=== PATIENT | female | born 1945 | race Caucasian/White ===

== ENCOUNTER → 2018-04-29 | Outpatient (CLI) | payer MEDICARE ==
[~2018-04-29] MED LIST: AMBEREN PO; AMITRIPTYLINE H10 M1; ASPIRIN EC325 M1 PO; ASPIRIN325 PO; B12INJ PO; CO Q-10100 MG PO; GINKGO BILOBA40 M1 PO; GINKGO BILOBA500 MG; KRILL OIL500 MG PO; LIPITOR 10 MG10 M1 PO; LORTAB 5 MG/5001 TA1 PO; MULTI-VITAMIN1 EAC5 PO; MULTIVITAMINS PO; NIFEREX100 MG/5 M; OMEPRAZOLE40 MG PO; PYRIDOXINE HCL50 MG PO; THERA-M CAPLET1 EACH PO; VITAMIN B-12500 MCG PO; VITAMIN B-650 M1 PO; VITCB500GO PO
== END ==
LOC: M.RAD 13:01
DX: Z12.31 Encounter for screening mammogram for malignant neoplasm of breast (principal); M85.80 Other specified disorders of bone density and structure, unspecified site; Z78.0 Asymptomatic menopausal state

== ENCOUNTER → 2018-09-29 | Outpatient (CLI) | payer MEDICARE | LOC: M.ULTRA 08:14 | DX: C78.7 Secondary malignant neoplasm of liver and intrahepatic bile duct (principal); K21.9 Gastro-esophageal reflux disease without esophagitis; R10.13 Epigastric pain ==